=== PATIENT | female | born 1960 | race Caucasian/White ===

== ENCOUNTER 2024-04-20 13:19 | Emergency (ER) | payer OTHER ==
--- NOTE | 2024-04-20 13:59 | RAD REPORT ---
EXAM DESCRIPTION: RAD - Knee Right 3 View - 04/20/2024 1:51 pm CLINICAL HISTORY: PAIN COMPARISON: No comparisons FINDINGS: Mild medial compartment space osteoarthritis. No fracture, dislocation or joint effusion. Mild popliteal atherosclerosis.
--- NOTE | 2024-04-20 13:59 | RAD REPORT ---
EXAM DESCRIPTION: RAD - Shoulder Right 2 View - 04/20/2024 1:51 pm CLINICAL HISTORY: PAIN COMPARISON: No comparisons FINDINGS: Moderate AC joint and glenohumeral joint arthritic changes are present. No acute fracture or dislocation
--- NOTE | 2024-04-20 14:36 | ER ---
Nurse's Notes [facility] Name: Shweta Nina Age: 64 yrs Sex: Female : 1960 Arrival Date: 04/20/2024 Time: 13:19 Bed Treatment Private MD: Diagnosis: Contusion of right knee;Contusion of right shoulder Presentation: 04/20 13:28 Chief complaint: Patient states: Right knee and right shoulder s/p trip and fall. Pt cm10 denies any loc, did not hit head. Coronavirus screen: Vaccine status: Patient reports receiving the 1st dose of the Covid vaccine. Client denies travel out of the [place] in the last 14 days. At this time, the client does not indicate any symptoms associated with coronavirus-19. Ebola Screen: Patient denies travel to an Ebola-affected area in the 21 days before illness onset. No symptoms or risks identified at this time. Initial Sepsis Screen: Does the patient meet any 2 criteria? No. Patient's initial sepsis screen is negative. Does the patient have a suspected source of infection? No. Patient's initial sepsis screen is negative. Risk Assessment: Do you want to hurt yourself or someone else? Patient reports no desire to harm self or others. Onset of symptoms was April 20, 2024. 13:28 Method Of Arrival: Ambulatory cm10 13:28 Acuity: RADHA 4 cm10 Triage Assessment: 13:30 General: Appears in no apparent distress. comfortable, Behavior is calm, cooperative. cm10 Pain: Complains of pain in anterior aspect of right shoulder and right knee. Neuro: No deficits noted. Level of Consciousness is awake, alert, obeys commands, Oriented to person, place, time, situation, Appropriate for age. Respiratory: No deficits noted. Airway is patent Respiratory effort is even, unlabored, Respiratory pattern is regular, symmetrical. Derm: No signs and/or symptoms reported regarding the dermatologic system. Skin is intact, Skin is pink, warm \T\ dry. Musculoskeletal: Reports pain in anterior aspect of right shoulder and right knee. Historical: - Allergies: 13:30 No Known Allergies; cm10 - PMHx: 13:30 Diabetes mellitus; Hypercholesterolemia; cm10 - PSHx: 13:30 ankle; knee; cm10 - Immunization history:: Adult Immunizations up to date. - Infectious Disease History:: Denies. - Social history:: Smoking status: Patient denies any tobacco usage or history of. - Family history:: not pertinent. - Hospitalizations: : No recent hospitalization is reported. Screenin:34 [facility] ED Fall Risk Assessment (Adult) History of falling in the last 3 months, cm10 including since admission Yes- single mechanical fall (1 pt) Confusion or Disorientation No (0 pts) Intoxicated or Sedated No (0 pts) Impaired Gait No (0 pts) Mobility Assist Device Used No (0 pt) Altered Elimination No (0 pt) Score/Fall Risk Level 0 - 2 = Low Risk Oriented to surroundings, Maintained a safe environment, Hourly rounding (assess needs \T\ fall precautionary measures) done. Abuse screen: Denies threats or abuse. Denies injuries from another. Nutritional screening: No deficits noted. Tuberculosis screening: No symptoms or risk factors identified. Vital Signs: 13:28 BP 113 / 50; Pulse 70; Resp 16; Temp 98.6; Pulse Ox 96% on R/A; Weight 68.04 kg; Height cm10 5 ft. 7 in. ; Pain 7/10; 13:28 Body Mass Index 23.49 (68.04 kg, 170.18 cm) cm10 13:28 Pain Scale: Adult cm10 ED Course: 13:22 Patient arrived in ED. cm10 13:22 Brandin Bee MD is Attending Physician. rn 13:28 Erin Nina, DEIDRA is Primary Nurse. cm10 13:30 Triage completed. cm10 13:34 Arm band placed on Patient placed in an exam room, on a stretcher, on pulse oximetry. cm10 13:34 Patient has correct armband on for positive identification. Placed in gown. Bed in low cm10 position. Call light in reach. Provided Education on: ER process and procedures.. Pulse ox on. NIBP on. 13:48 Knee immobilizer applied on right knee. cm10 13:50 No provider procedures requiring assistance completed. Patient did not have IV access cm10 during this emergency room visit. 13:53 XRAY Knee RIGHT 3 view In Process Unspecified. EDMS 13:53 XRAY Shoulder RIGHT 2 view In Process Unspecified. EDMS Administered Medications: No medications were administered Medication: 13:34 VIS not applicable for this client. cm10 Outcome: 14:34 Discharge ordered by . rn 14:37 Discharged to home ambulatory, Franklyn 14:37 Condition: good 14:37 Discharge instructions given to patient, Instructed on discharge instructions, follow up and referral plans. Demonstrated understanding of instructions, follow-up care, 14:37 Patient left the ED. 10 Signatures: Dispatcher [employer] EDBrandin Monroe MD MD rn Martinez, Clarissa, RN RN Franklyn
--- NOTE | 2024-04-20 14:36 | EDPHYS ---
Physician Documentation [facility] Name: Shweta Nina Age: 64 yrs Sex: Female : 1960 Arrival Date: 04/20/2024 Time: 13:19 Bed Treatment Private MD: ED Physician Brandin Bee HPI: 04/20 14:32 This 64 yrs old Female presents to ER via Ambulatory with complaints of Knee Pain. rn 14:32 The patient presents with an injury, pain. The complaints affect the right knee. rn 14:32 Onset: The symptoms/episode began/occurred today. Modifying factors: The symptoms are rn alleviated by nothing. the symptoms are aggravated by weight bearing. Severity of symptoms: At their worst the symptoms were mild, in the emergency department the symptoms are unchanged. The patient has not experienced similar symptoms in the past. Patient reports fall, injured right knee and right shoulder. Ambulatory but hurts to bear weight. Has chronic knee problems.. Historical: - Allergies: 13:30 No Known Allergies; cm10 - PMHx: 13:30 Diabetes mellitus; Hypercholesterolemia; cm10 - PSHx: 13:30 ankle; knee; cm10 - Immunization history:: Adult Immunizations up to date. - Infectious Disease History:: Denies. - Social history:: Smoking status: Patient denies any tobacco usage or history of. - Family history:: not pertinent. - Hospitalizations: : No recent hospitalization is reported. ROS: 14:32 Constitutional: Negative for fever, chills, and weight loss, MS/Extremity: Positive for rn knee pain Exam: 14:32 Constitutional: This is a well developed, well nourished patient who is awake, alert, rn and in no acute distress. MS/ Extremity: Pulses equal, no cyanosis. Neurovascular intact. Good ROM. mild inferior effusion palpated. Vital Signs: 13:28 BP 113 / 50; Pulse 70; Resp 16; Temp 98.6; Pulse Ox 96% on R/A; Weight 68.04 kg; Height cm10 5 ft. 7 in. ; Pain 7/10; 13:28 Body Mass Index 23.49 (68.04 kg, 170.18 cm) cm10 13:28 Pain Scale: Adult cm10 MDM: 13:22 Patient medically screened. rn 14:32 Differential diagnosis: closed fracture, contusion. Data reviewed: vital signs, nurses rn notes, radiologic studies, plain films, and as a result, I will discharge patient. Counseling: I had a detailed discussion with the patient and/or guardian regarding the historical points, exam findings, and any diagnostic results supporting the discharge/admit diagnosis, radiology results, the need for outpatient follow up, to return to the emergency department if symptoms worsen or persist or if there are any questions or concerns that arise at home. Special discussion: I discussed with the patient/guardian in detail that at this point there is no indication for admission to the hospital. It is understood, however, that if the symptoms persist or worsen the patient needs to return immediately for re-evaluation. 04/20 13:25 Order name: XRAY Knee RIGHT 3 view; Complete Time: 14:14 rn 04/20 13:25 Order name: XRAY Shoulder RIGHT 2 view; Complete Time: 14:14 rn Administered Medications: No medications were administered Disposition Summary: 04/20/24 14:34 Discharge Ordered Notes: Location: Home rn Problem: new rn Symptoms: have improved rn Condition: Stable rn Diagnosis - Contusion of right knee rn - Contusion of right shoulder rn Followup: rn - With: Private Physician - When: As needed - Reason: Recheck today's complaints, Re-evaluation by your physician Discharge Instructions: - Discharge Summary Sheet rn - Contusion rn Forms: - Medication Reconciliation Form rn - 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 EDHI EDHI
[2024-04-20 15:21] VITALS: BP 113/50; TEMP 98.6; O2SAT 96
== END 2024-04-20 14:37 | disposition home or self-care (01) ==
LOC: ER 13:19
DX: S80.01XA Contusion of right knee, initial encounter (principal); S40.011A Contusion of right shoulder, initial encounter; W18.30XA Fall on same level, unspecified, initial encounter
CPT/HCPCS: 99283